=== PATIENT | female | born 1985 | race Hispanic/Latino ===

== ENCOUNTER 2018-06-28 13:01 | Day surgery (SDC) | payer BC ==
[2018-06-27 12:07] VITALS: BMI 21.4
[2018-06-28] MEDS ORDERED: Lidocaine 1% w/Epinephrine 1:100K 30 ML VIAL ONE (14:00)
[2018-06-28] MEDS ORDERED: Fentanyl 100 MCG/2 ML VIAL ONE ×2 (14:01→15:28)
[2018-06-28] MEDS ORDERED: Midazolam HCl 2 mg/2 ml Vial ONE ×2 (14:01→14:14)
[2018-06-28 14:30] LABS: BHCG - Serum Negative (NEGATIVE); Pregs Control Background? CLEAR/WHITE (CLR/WHITE); Pregs Control Bar Appear? YES (CONTROL BAR)
[2018-06-28] MEDS ORDERED: Lidocaine 1% PF 5 ML VIAL ONE (14:42)
[2018-06-28] MEDS ORDERED: Dexamethasone 20 MG/5 ML VIAL ONE (14:42)
[2018-06-28] MEDS ORDERED: PROPOFOL 200 MG/20 ML VIAL ONE (14:42)
[2018-06-28] MEDS ORDERED: PHENYLEPHRINE-NS 100 MCG/ML 10 ML SYRINGE ONE (14:42)
[2018-06-28] MEDS ORDERED: Ondansetron PF 4 MG/2 ML Vial ONE (14:42)
--- NOTE | 2018-06-28 15:54 | OP ---
PREOPERATIVE DIAGNOSIS: Left infected neck mass. POSTOPERATIVE DIAGNOSIS: Left infected neck mass. PROCEDURE PERFORMED: Excision of infected deep left neck mass with complex closure measuring 5 cm. PROCEDURE IN DETAIL: After consent was obtained, the patient was identified, brought to the operatin g room and placed on the table in supine position. There was a large fluctuant mass with a deformed skin that was appearance. An elliptical incision was made over the markedly thin skin and the skin was removed, there was a fair amount of inflammatory debris and purulence that was encountered a nd cultures were obtained. Some of the tissues were sent for atypical acid fast bacteria culture and gram stain. We then removed as much of the necrotic tissue and lymphatic tissue as possible and abr aded the remainder tissue with Q-tip. We then closed the incision in layers with 5-0 Monocryl used f or the deep tissues and 6-0 Prolene for the skin. The patient was then awakened and taken to recover y room where she remained in stable condition prior to discharge home.
[2018-06-28] MEDS ORDERED: HYDROcodone/Acetaminophen 5/325 mg Tablet ONE (16:12)
--- NOTE | 2018-07-03 10:00 | PQF ---
[facility] POST DISCHARGE CLINICAL DOCUMENTATION IMPROVEMENT CLARIFICATION FORM l Todays Date: 07/03/18 l Patients Name VAUGHN GALINDO l l Admit Date 06/28/18 l Disch Date 06/28/18 Grade Teacher Name Gilmar Oreilly Email: [email or web address]: [phone] To be completed by Grade Teacher: Present Clinical Indicators - Signs / Symptoms Results and Location in Medical Record [ ] Documentation of: [ ] [ ] Documentation of: [ ] [ ] Documentation of: [ ] [ ] Documentation of: [ ] [ ] Risks [ ] [ ] [ ] Treatment [ ] INFECTED LEFT NECK MASS QUERY FOR SIZE OF EXCISED LESION W MARGINS [ ] [ ] To be completed by Physician: STEVEN KIRK The documentation in this patients record requires clarification to ensure coding compliance and accuracy. Check the appropriate box and include in your discharge summary. [ ] [ ] [ ] [ ] Please check this box if this does not apply to this patient [ ] Unable to determine [ ] Other diagnosis: Review the following information and exercise your independent professional judgment in responding to the clarification. Based upon the clinical findings, risk factors, and treatment, please clarify if you are treating one of the above probable or suspected diagnoses. Physician Signature: Date Time MTDD
[2018-07-04 18:11] LABS: Fungus Stain Final report (.)
== END 2018-06-28 16:44 | disposition home or self-care (01) ==
LOC: SDC 13:01
PROVIDERS: ATTEND Specialist
PROC: 0JQ50ZZ Repair Left Neck Subcutaneous Tissue and Fascia, Open Approach (ICD-10-PCS; principal; 2018-06-28)
PROC: 0JB50ZZ Excision of Left Neck Subcutaneous Tissue and Fascia, Open Approach (ICD-10-PCS; principal; 2018-06-28)
DX: R22.1 Localized swelling, mass and lump, neck (principal); A15.8 Other respiratory tuberculosis; B96.89 Other specified bacterial agents as the cause of diseases classified elsewhere; B95.4 Other streptococcus as the cause of diseases classified elsewhere; Z79.899 Other long term (current) drug therapy
CPT/HCPCS: 36415; 84703; 85014; 87070; 87076; 87077; 87102; 87205; 87206; 96374; J1100; J2001; J2250; J2405; J2704; J3010